=== PATIENT | female | born 1950 | race Caucasian/White ===

== ENCOUNTER 2017-11-14 18:11 | Observation (INO) | payer MEDICARE, MEDICAID ==
[~2017-11-14] VITALS: Ht 157.5 cm; Wt 70.9 kg
[~2017-11-14 18:11] MED LIST: ALBU8.5H8 INH; ENAL10TA PO; LEVO125T5 PO; NYST1000 PO; ONDA4TAB7 PO; OXYC5CAP2 PO
[2017-11-14] MEDS ORDERED: SODIUM CHLORIDE 0.9% 1,000ML IVBOLUS ONE (19:00)
[2017-11-14] MEDS ORDERED: ACETAMINOPHEN 325 MG TABLET PO ONE (19:00)
[2017-11-14] MEDS ORDERED: SODIUM CHLORIDE FLUSH 10ML SYR IVF ONE (19:00)
[2017-11-14] MEDS ORDERED: ACETAMINOPHEN 325 MG TABLET ONE (19:08)
[2017-11-14 19:21] LABS: BASOPHILS # (AUTO) 0.04 x10^3/uL (0-0.1); BASOPHILS % (AUTO) 0 % (0-1); EOSINOPHILS % (AUTO) 1 % (1-7); LYMPHOCYTES # (AUTO) 2.22 x10^3/uL (1-3.4); LYMPHOCYTES % (AUTO) 21 % (22-44); MD NO; MEAN CORPUSCULAR HGB CONC 33.4 g/dL (32.4-35.8); MEAN PLATELET VOLUME 7.5 fL (7.4-10.4); MONOCYTES % (AUTO) 8 % (2-9); NEUTROPHILS # (AUTO) 7.33 x10^3/uL (1.8-6.8); NEUTROPHILS % (AUTO) 70 % (42-75); PLATELET COUNT 310 x10^3/uL (130-400); RED BLOOD COUNT 4.32 x10^6/uL (3.82-5.3); RED CELL DISTRIBUTION WIDTH 14.6 % (9.6-15.2)
[2017-11-14 19:27] LABS: CHLORIDE 104 mmol/L (98-107)
[2017-11-14 19:28] LABS: ALANINE AMINOTRANSFERASE 19 U/L (12-78); ALBUMIN 3.1 g/dL (3.4-5.0); ANION GAP 6 mmol/L (5-15); CALCIUM 8.4 mg/dL (8.5-10.1); CREATININE 0.98 mg/dL (0.55-1.02)
[2017-11-14 19:30] LABS: ALKALINE PHOSPHATASE 53 U/L (45-117); BILIRUBIN,TOTAL 0.4 mg/dL (0.2-1.0); TOTAL PROTEIN 8.3 g/dL (6.4-8.2)
[2017-11-14 19:33] LABS: MICROSCOPIC INDICATED
[2017-11-14 20:09] LABS: CULTURE INDICATED? NO
[2017-11-14] MEDS ORDERED: OMNIPAQUE 350 MG/ML, 100ML BOTTLE ONE (20:20)
[2017-11-14 21:25] LABS: INTERNATIONAL NORMALIZED RATIO 0.95 (0.93-1.1); PROTHROMBIN TIME 9.8 Seconds (9.6-11.5)
[2017-11-14] MEDS ORDERED: ENOXAPARIN 60 MG/0.6 ML SQ ONE (21:30)
[2017-11-14] MEDS ORDERED: SODIUM CHLORIDE FLUSH 10ML SYR IVF PRN (22:00)
[2017-11-14] MEDS ORDERED: BUDE10.2 INH (22:06)
[2017-11-14] MEDS ORDERED: ENOXAPARIN 60 MG/0.6 ML ONE (22:14)
[2017-11-14] MEDS ORDERED: CEFTRIAXONE PMX 1GM/50ML 50 ML ONE (22:22)
[2017-11-14] MEDS ORDERED: CEFTRIAXONE 1,000 MG in SODIUM CHLORIDE 0.9% 50 ML IVPB ONE (22:30)
[2017-11-14 22:55] VITALS: BP 118/57
[2017-11-14] MEDS ORDERED: ALBUTEROL SULFATE 2.5 MG/3 ML NPPB PRN (23:45)
[2017-11-15] MEDS ORDERED: morphine SULFATE 10 MG/ML, 1ML IVPush PRN
[2017-11-15] MEDS ORDERED: BISACODYL 10 MG SUPP PR PRN
[2017-11-15] MEDS ORDERED: HYDROcodone/APAP 5/325 TABLET PO PRN
[2017-11-15] MEDS ORDERED: hydrALAzine 20 MG/ML, 1ML IVPush PRN
[2017-11-15 01:44] VITALS: BP 105/60
[2017-11-15] MEDS ORDERED: LEVOTHYROXINE 125 MCG TABLET PO SCH (06:00)
[2017-11-15 06:01] LABS: BASOPHILS # (AUTO) 0.04 x10^3/uL (0-0.1); BASOPHILS % (AUTO) 1 % (0-1); EOSINOPHILS # (AUTO) 0.37 x10^3/uL (0-0.4); EOSINOPHILS % (AUTO) 4 % (1-7); LYMPHOCYTES # (AUTO) 2.81 x10^3/uL (1-3.4); LYMPHOCYTES % (AUTO) 32 % (22-44); MD NO; MEAN CORPUSCULAR HEMOGLOBIN 29.3 pg (27.0-34.8); MEAN CORPUSCULAR HGB CONC 32.6 g/dL (32.4-35.8); MEAN CORPUSCULAR VOLUME 89.8 fL (80-100); MEAN PLATELET VOLUME 7.5 fL (7.4-10.4); MONOCYTES # (AUTO) 0.83 x10^3/uL (0.2-0.8); MONOCYTES % (AUTO) 10 % (2-9); NEUTROPHILS # (AUTO) 4.71 x10^3/uL (1.8-6.8); NEUTROPHILS % (AUTO) 54 % (42-75); PLATELET COUNT 273 x10^3/uL (130-400); RED BLOOD COUNT 4.05 x10^6/uL (3.82-5.3); RED CELL DISTRIBUTION WIDTH 14.5 % (9.6-15.2)
[2017-11-15 06:11] LABS: ANION GAP 7 mmol/L (5-15); CALCIUM 7.7 mg/dL (8.5-10.1); CHLORIDE 109 mmol/L (98-107); CREATININE 0.78 mg/dL (0.55-1.02)
[2017-11-15 06:53] VITALS: BP 109/71
[2017-11-15] MEDS ORDERED: APIXABAN 5 MG TABLET PO SCH (09:00)
[2017-11-15] MEDS ORDERED: ENALAPRIL 10 MG TABLET PO SCH (09:00)
[2017-11-15] MEDS ORDERED: ENOXAPARIN 40 MG/0.4 ML SQ SCH (09:00)
[2017-11-15] MEDS ORDERED: APIX5TAB PO (12:14)
[2017-11-15 13:54] VITALS: BP 96/52
[2017-11-22] MEDS ORDERED: APIXABAN 5 MG TABLET PO SCH (09:00)
== END 2017-11-15 14:50 | disposition home health service (06) ==
LOC: ED 21:23 → INTOOBSV 21:58 → EDIP 21:58 → 4WST 22:53
PROVIDERS: ADMIT Family Medicine; ATTEND Family Medicine
DX: I82.411 Acute embolism and thrombosis of right femoral vein (principal); I26.99 Other pulmonary embolism without acute cor pulmonale; R65.10 Systemic inflammatory response syndrome (SIRS) of non-infectious origin without acute organ dysfunction; I82.431 Acute embolism and thrombosis of right popliteal vein; I82.441 Acute embolism and thrombosis of right tibial vein; I10 Essential (primary) hypertension; I48.0 Paroxysmal atrial fibrillation; J44.9 Chronic obstructive pulmonary disease, unspecified; Z79.01 Long term (current) use of anticoagulants; Z82.49 Family history of ischemic heart disease and other diseases of the circulatory system
CPT/HCPCS: 36415; 71275; 80048; 80053; 81001; 83605; 84145; 85025; 85610; 85730; 87040; 93005; 93971; 96365; 96372; 97162; 99291; G0378; G8978; G8979; G8980; J0696; J1650; J7030; Q9967; 96361; 96374

== ENCOUNTER → 2019-02-03 | Outpatient (CLI) | payer MEDICARE, MEDICAID ==
[~2019-02-03] MED LIST changes: +APIX5TAB PO; +BUDE10.2 INH
== END | disposition home or self-care (01) ==
LOC: CFH 14:38
PROVIDERS: ATTEND Family Medicine
DX: Z12.31 Encounter for screening mammogram for malignant neoplasm of breast (principal)
CPT/HCPCS: 77063; 77067

== ENCOUNTER 2019-02-26 10:24 | Outpatient (CLI) | payer MEDICARE, MEDICAID | END 2019-02-26 23:59 | disposition home or self-care (01) | LOC: CFH 10:24 | PROVIDERS: ATTEND Nurse Practitioner Family | DX: R91.1 Solitary pulmonary nodule (principal); J98.4 Other disorders of lung; I25.10 Atherosclerotic heart disease of native coronary artery without angina pectoris; F17.210 Nicotine dependence, cigarettes, uncomplicated; N95.8 Other specified menopausal and perimenopausal disorders; J44.9 Chronic obstructive pulmonary disease, unspecified; Z85.41 Personal history of malignant neoplasm of cervix uteri | CPT/HCPCS: 77080; G0297 ==

== ENCOUNTER 2019-03-10 03:08 | Inpatient (IN) | payer MEDICARE, MEDICAID ==
[~2019-03-10] VITALS: Ht 157.5 cm; Wt 79.8 kg
[2019-03-10] MEDS ORDERED: ALBUTEROL SULFATE 2.5 MG/3 ML ONE (03:23)
[2019-03-10] MEDS ORDERED: ALBUTEROL SULFATE 2.5 MG/3 ML NPPB ONE (03:30)
[2019-03-10] MEDS ORDERED: methylPREDNISolone SOD SUCC 40 MG/ML IVPush ONE (03:30)
[2019-03-10 03:35] LABS: BASOPHILS % (AUTO) 0 % (0-1); EOSINOPHILS # (AUTO) 0.19 x10^3/uL (0-0.4); EOSINOPHILS % (AUTO) 2 % (1-7); LYMPHOCYTES % (AUTO) 16 % (22-44); MD NO; MEAN CORPUSCULAR HEMOGLOBIN 32.2 pg (27.0-34.8); MEAN CORPUSCULAR HGB CONC 32.9 g/dL (32.4-35.8); MEAN CORPUSCULAR VOLUME 97.9 fL (80-100); MEAN PLATELET VOLUME 7.5 fL (7.4-10.4); MONOCYTES # (AUTO) 0.44 x10^3/uL (0.2-0.8); MONOCYTES % (AUTO) 3 % (2-9); NEUTROPHILS # (AUTO) 10.24 x10^3/uL (1.8-6.8); NEUTROPHILS % (AUTO) 79 % (42-75); PLATELET COUNT 386 x10^3/uL (130-400); RED BLOOD COUNT 5.02 x10^6/uL (3.82-5.3); RED CELL DISTRIBUTION WIDTH 14.4 % (9.6-15.2)
[2019-03-10 03:45] LABS: ALANINE AMINOTRANSFERASE 24 U/L (12-78); ALBUMIN 3.4 g/dL (3.4-5.0); ANION GAP 5 mmol/L (5-15); CALCIUM 8.3 mg/dL (8.5-10.1); CHLORIDE 110 mmol/L (98-107); CREATININE 1.15 mg/dL (0.55-1.02)
[2019-03-10] MEDS ORDERED: methylPREDNISolone SOD SUCC 40 MG/ML ONE (03:53)
[2019-03-10 04:06] LABS: BILIRUBIN,TOTAL 0.5 mg/dL (0.2-1.0); TROPONIN I < 0.015 ng/mL (0.000-0.045)
[2019-03-10 04:07] LABS: ALKALINE PHOSPHATASE 59 U/L (45-117); TOTAL PROTEIN 7.5 g/dL (6.4-8.2)
[2019-03-10] MEDS ORDERED: SODIUM CHLORIDE 0.9% 1,000 ML IV SCH (05:17)
[2019-03-10] MEDS ORDERED: BISACODYL 10 MG SUPP PR PRN (05:30)
[2019-03-10] MEDS ORDERED: POLYETHYLENE GLYCOL 17 GM PACKET PO PRN (05:30)
[2019-03-10] MEDS ORDERED: ONDANSETRON 2MG/ML, 2ML IVPush PRN (05:30)
[2019-03-10] MEDS ORDERED: OXYcodone IR 5MG TABLET PO PRN (05:30)
[2019-03-10] MEDS: NICOTINE 14MG/24 HR PATCH.TD24 TD SCH (05:30)
[2019-03-10] MEDS ORDERED: hydrALAzine 20 MG/ML, 1ML IVPush PRN (05:30)
[2019-03-10] MEDS ORDERED: ACETAMINOPHEN 325 MG TABLET PO PRN (05:30)
[2019-03-10] MEDS ORDERED: PROMETHAZINE 25 MG/ML, 1ML IM PRN (05:30)
[2019-03-10] MEDS ORDERED: ONDANSETRON ODT 4 MG PO PRN (05:30)
[2019-03-10] MEDS ORDERED: morphine SULFATE 10 MG/ML, 1ML IVPush PRN (05:30)
[2019-03-10] MEDS ORDERED: DOCUSATE 100 MG CAPSULE PO PRN (05:30)
[2019-03-10] MEDS ORDERED: OMNIPAQUE 350 MG/ML, 100ML BOTTLE ONE (05:42)
[2019-03-10] MEDS ORDERED: UMEC1DIS INH (05:51)
[2019-03-10] MEDS: GUAIFENESIN 200 MG TABLET PO SCH ×4 (06:00→21:25)
[2019-03-10 06:24] LABS: FREE T4 (FREE THYROXINE) 1.27 ng/dL (0.76-1.46); TROPONIN I < 0.015 ng/mL (0.000-0.045)
[2019-03-10 06:39] VITALS: BP 92/56
[2019-03-10 07:54] VITALS: BP 115/76
[2019-03-10] MEDS: HEPARIN 5,000 UNITS/ML, 1ML SQ SCH ×2 (08:30→17:29)
[2019-03-10] MEDS: DOXYCYCLINE 100MG TABLET PO SCH ×2 (08:30→20:32)
[2019-03-10] MEDS: methylPREDNISolone SOD SUCC 125 MG/2 ML IVPush SCH ×3 (08:30→20:31)
[2019-03-10 11:09] LABS: TROPONIN I < 0.015 ng/mL (0.000-0.045)
[2019-03-10 13:15] VITALS: BP 117/68
[2019-03-10 18:58] VITALS: BP 106/66
[2019-03-10] MEDS: ALBUTEROL/IPRATROPIUM 2.5MG/0.5MG, 3 ML NPPB SCH (20:03)
[2019-03-11] MEDS: HEPARIN 5,000 UNITS/ML, 1ML SQ SCH ×3 (00:31→18:36)
[2019-03-11 01:30] VITALS: BP 120/73
[2019-03-11] MEDS: methylPREDNISolone SOD SUCC 125 MG/2 ML IVPush SCH ×4 (02:16→22:40)
[2019-03-11] MEDS: NICOTINE 14MG/24 HR PATCH.TD24 TD SCH (03:12)
[2019-03-11 05:54] LABS: ALANINE AMINOTRANSFERASE 28 U/L (12-78); ALBUMIN 3.4 g/dL (3.4-5.0); ANION GAP 7 mmol/L (5-15); CALCIUM 8.9 mg/dL (8.5-10.1); CHLORIDE 111 mmol/L (98-107); CHOLESTEROL, TOTAL 163 mg/dL (140-239); CREATININE 1.14 mg/dL (0.55-1.02)
[2019-03-11 05:56] LABS: ALKALINE PHOSPHATASE 55 U/L (45-117); BILIRUBIN,TOTAL 0.3 mg/dL (0.2-1.0); CHOL/HDL RATIO 3.1; HDL CHOL % 33 % (28-40); HDL CHOLESTEROL (DIRECT) 53 mg/dL (40-60); LDL CHOLESTEROL,CALCULATED 95 mg/dL (54-169); LDL/HDL RATIO 1.8 (0.5-3.0); TOTAL PROTEIN 8.2 g/dL (6.4-8.2); TRIGLYCERIDES 73 mg/dL (50-200); VLDL CHOLESTEROL 15 mg/dL (0-25)
[2019-03-11 05:59] LABS: MEAN CORPUSCULAR HEMOGLOBIN 31.8 pg (27.0-34.8); MEAN CORPUSCULAR HGB CONC 32.3 g/dL (32.4-35.8); MEAN CORPUSCULAR VOLUME 98.6 fL (80-100); MEAN PLATELET VOLUME 7.6 fL (7.4-10.4); PLATELET COUNT 379 x10^3/uL (130-400); RED BLOOD COUNT 4.89 x10^6/uL (3.82-5.3); RED CELL DISTRIBUTION WIDTH 14.9 % (9.6-15.2)
[2019-03-11] MEDS: GUAIFENESIN 200 MG TABLET PO SCH ×4 (06:29→22:40)
[2019-03-11] MEDS: ALBUTEROL/IPRATROPIUM 2.5MG/0.5MG, 3 ML NPPB SCH ×4 (06:45→19:33)
[2019-03-11 06:54] LABS: BASOPHILS # (AUTO) 0.01 x10^3/uL (0-0.1); BASOPHILS % (AUTO) 0 % (0-1); EOSINOPHILS % (AUTO) 0 % (1-7); LYMPHOCYTES # (AUTO) 1.72 x10^3/uL (1-3.4); LYMPHOCYTES % (AUTO) 8 % (22-44); MD SCAN; MONOCYTES # (AUTO) 0.36 x10^3/uL (0.2-0.8); MONOCYTES % (AUTO) 2 % (2-9); NEUTROPHILS # (AUTO) 19.05 x10^3/uL (1.8-6.8); NEUTROPHILS % (AUTO) 90 % (42-75)
[2019-03-11 07:55] VITALS: BP 106/66
[2019-03-11] MEDS: DOXYCYCLINE 100MG TABLET PO SCH ×2 (10:21→22:40)
[2019-03-11 15:15] VITALS: BP 107/63
[2019-03-11 18:59] VITALS: BP 118/65
[2019-03-12 02:09] VITALS: BP_SYST 144; BP_SYST 182; BP_DIAS 78; BP_DIAS 82
[2019-03-12] MEDS: HEPARIN 5,000 UNITS/ML, 1ML SQ SCH (02:11)
[2019-03-12] MEDS: NICOTINE 14MG/24 HR PATCH.TD24 TD SCH (02:32)
[2019-03-12] MEDS: ALBUTEROL/IPRATROPIUM 2.5MG/0.5MG, 3 ML NPPB SCH ×2 (02:51→07:32)
[2019-03-12] MEDS: methylPREDNISolone SOD SUCC 125 MG/2 ML IVPush SCH (04:02)
[2019-03-12] MEDS: GUAIFENESIN 200 MG TABLET PO SCH (06:29)
[2019-03-12 07:58] VITALS: BP 114/68
[2019-03-12] MEDS ORDERED: DOXY100T PO (08:42)
[2019-03-12] MEDS ORDERED: PRED20TA PO (08:43)
[2019-03-12] MEDS: DOXYCYCLINE 100MG TABLET PO SCH (09:01)
== END 2019-03-12 09:36 | disposition home or self-care (01) | DRG 189 ==
LOC: ED 04:14 → EDIP 04:19 → ED 04:31 → 5SO 06:32 → DCLOUNGE 03-12 09:28
PROVIDERS: ADMIT Internal Medicine; ATTEND Family Medicine
DX: J96.01 Acute respiratory failure with hypoxia (principal); N17.0 Acute kidney failure with tubular necrosis; J44.1 Chronic obstructive pulmonary disease with (acute) exacerbation; J98.11 Atelectasis; E03.9 Hypothyroidism, unspecified; F17.210 Nicotine dependence, cigarettes, uncomplicated; I12.9 Hypertensive chronic kidney disease with stage 1 through stage 4 chronic kidney disease, or unspecified chronic kidney disease; N18.9 Chronic kidney disease, unspecified; Z82.49 Family history of ischemic heart disease and other diseases of the circulatory system; Z86.711 Personal history of pulmonary embolism; Z86.718 Personal history of other venous thrombosis and embolism
CPT/HCPCS: 0399T; 36415; 71045; 71275; 80053; 80061; 83036; 83735; 83880; 84439; 84443; 84484; 85025; 93005; 93306; 94640; 99285; G0378; J1644; J7613; J7620; Q9967; J2920; J2930; J7030

== ENCOUNTER → 2020-05-24 | Outpatient (CLI) | payer MEDICARE, MEDICAID ==
[~2020-05-24] MED LIST changes: +DOXY100T PO; -ENAL10TA PO; +ENAL10TA9 PO; +PRED20TA PO; +UMEC1DIS INH
== END | disposition home or self-care (01) ==
LOC: CFH 09:45
PROVIDERS: ATTEND Family Medicine
DX: Z12.2 Encounter for screening for malignant neoplasm of respiratory organs (principal); R91.1 Solitary pulmonary nodule; I25.10 Atherosclerotic heart disease of native coronary artery without angina pectoris; Z87.891 Personal history of nicotine dependence
CPT/HCPCS: 71271

== ENCOUNTER → 2020-11-15 | Outpatient (CLI) | payer MEDICARE, MEDICAID | END | disposition home or self-care (01) | LOC: CFH 08:43 | PROVIDERS: ATTEND Nurse Practitioner Family | DX: J43.2 Centrilobular emphysema (principal); J98.4 Other disorders of lung; M51.34 Other intervertebral disc degeneration, thoracic region; I25.10 Atherosclerotic heart disease of native coronary artery without angina pectoris | CPT/HCPCS: 71250 ==